=== PATIENT | female | born 1985 | race American Indian/Alaskan Native ===

== ENCOUNTER 2017-11-27 13:44 | Outpatient (CLI) | payer BC ==
--- NOTE | 2017-11-27 15:42 | Fluoroscopy Report ---
HYSTEROSALPINGOGRAM: History: Female infertility. Informed consent was obtained. Standard sterile prep and drape was employed. The catheter tip was subsequently placed within the uterine lumen via cervix. The small balloon on the tip of the catheter was inflated. Retrograde injection opacifies normal appearing uterine lumen. There is prompt filling of the fallopian tubes with prompt bilateral spillage. The uterine lumen demonstrates no evidence for extrinsic compression or intrinsic mass. IMPRESSION: Normal hysterosalpingogram.
== END 2017-11-27 13:45 | disposition home or self-care (01) ==
LOC: FLUORO 13:44
PROVIDERS: ATTEND Obstetrics & Gynecology
DX: N97.9 Female infertility, unspecified (principal)
CPT/HCPCS: 58340; 74740; Q9967

== ENCOUNTER 2019-01-04 11:19 | Inpatient (IN) | payer OTHER ==
[2019-01-04] MEDS: LACTATED RINGERS 1,000 ML IV SCH ×2 (12:45→14:58)
[2019-01-04 13:12] LABS: Bilirubin,Urine NEG (Negative); Blood,Urine LG (Negative); Color,Urine Amber (Yellow); Mucus,Urine FEW /HPF; Urobilinogen,Urine < 2.0 mg/dL (<2.0)
[2019-01-04] MEDS ORDERED: SUBLIMAZE IV PRN (13:38)
[2019-01-04 13:54] LABS: Hematocrit 35.9 % (30.3-42.9); Hemoglobin 12.3 gm/dl (10.1-14.3); Mean Corpuscular HGB Conc 34 % (30-34); Mean Corpuscular Volume 85 fl (79-97); Platelet Count 143 K/mm3 (140-440); Red Blood Count 4.24 M/mm3 (3.65-5.03); Red Cell Distribution Width 14.8 % (13.2-15.2)
[2019-01-04] MEDS ORDERED: PITOCin/NS 20 UNIT/1000ML DRIP 20 UNITS/1,000 ML BAG IV SCH (14:00)
[2019-01-04] MEDS ORDERED: PITOCin/NS 30 UNIT/500ML 30 UNITS/500 ML BAG IV SCH (14:00)
--- NOTE | 2019-01-04 16:34 | History and Physical Report ---
History of Present Illness Date of examination: 01/04/19 Date of admission: 01/04/19 14:51 Chief complaint: I'm in pain History of present illness: Patient is a 33 year old who presents in active labor at 39.3 weeks. Patient has been a patient of [facility] since 10 weeks. 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 Family/Genetic History: none Social history: - Obstetrical History Expected Date of Delivery: 01/15/19 Actual Gestation: 38 Week(s) 3 Day(s) : 2 Number of Living Children: 0 Medications and Allergies Allergies Allergy/AdvReac Type Severity Reaction Status Date / Time No Known Allergies Allergy Unverified 11/27/17 13:44 Home Medications Medication Instructions Recorded Confirmed Last Taken Type Pnv,Calcium 72/Iron,Carb/Folic 1 tab PO QDAY 01/04/19 01/04/19 01/03/19 12:00 History [ Plus Iron Tablet] valACYclovir [Valtrex] 1 tab PO BID 01/04/19 01/04/19 01/03/19 19:00 History Active Meds: Active Medications Fentanyl (Sublimaze) 100 mcg IV Q2H PRN PRN Reason: Labor Pain Lactated Ringer's (Lactated Ringers) 1,000 mls @ 125 mls/hr IV DIRECT ABRAHAN Last Admin: 01/04/19 14:58 Dose: 125 mls/hr Documented by: Oxytocin/Sodium Chloride (Pitocin/Ns 20 Unit/1000ml Drip) 20 units in 1,000 mls @ 0 mls/hr IV DIRECT ABRAHAN Oxytocin/Sodium Chloride (Pitocin/Ns 30 Unit/500ml) 30 units in 500 mls @ 2 mls/hr IV TITR ABRAHAN; Protocol Review of Systems All systems: negative Genitourinary: leakage of fluid, contractions - Vital Signs Vital signs: Vital Signs Temp Resp 98.5 F 18 01/04/19 11:29 01/04/19 11:29 Temp Pulse Resp BP Pulse Ox 98.5 F 109 H 18 142/85 99 01/04/19 11:29 01/04/19 16:28 01/04/19 11:29 01/04/19 16:28 01/04/19 13:58 - Physical Exam Breasts: Cardiovascular: Regular rate, Normal S1, Normal S2 Lungs: Positive: Clear to auscultation, Normal air movement Abdomen: Positive: normal appearance, soft, normal bowel sounds. Negative: distention, tenderness Vulva: both: normal Vagina: Positive: normal moisture. Negative: discharge Cervix: Negative: lesion, discharge Uterus: Positive: normal size, normal contour Adnexa: both: normal Anus/Rectum: Positive: normal perianal skin, heme negative. Negative: rectal mass, hemorrhoids Extremities: Deep Tendon Reflex Grade: Normal +2 - Obstetrical FHR: auscultation normal Uterine Contraction Monitor Mode: External Cervical Dilatation: 5 Cervical Effacement Percentage: 90 station: -2 Uterine Contraction Pattern: Regular Uterine Tone Measurement Phase: Contraction Uterine Contraction Intensity: Moderate Results Result Diagrams: 01/04/19 12:20 Abnormal lab results 01/04/19 01/04/19 Range/Units 12:20 12:45 WBC 11.2 H (4.5-11.0) K/mm3 Urine WBC (Auto) 8.0 H (0.0-6.0) /HPF All other labs normal. Assessment and Plan IUP at 39.3 weeks in active labor. Admit to L&D. Epidural if desired. AROM. Anticipate .
--- NOTE | 2019-01-04 16:39 | Procedure Note ---
OB Delivery Note - Delivery Date of Delivery: 01/04/19 Surgeon: ADRIANA HURST Estimated blood loss: 200cc - Vaginal Delivery presentation: vertex Delivery position: OA Intrapartum events: meconium Delivery induction: none Delivery augmentation: pitocin Delivery monitor: external FHT Route of delivery: Delivery placenta: spontaneous Delivery cord: 3 umbilical vessels Episiotomy: none Delivery laceration: none Anesthesia: none Delivery comments: Viable male delivered over intact perineum with 3vc. Mouth and nose suctioned on field. placed on maternal abdomen. Cord clamped and cut and infant handed to waiting NICU personnel who were called for meconium. Placenta delivered spontaneously and intact. Small labial laceration hemostatic and not repaired. - B at 1 minute: 8 at 5 minutes: 9 Infant Gender: Male (7 pounds 10 ounces)
[2019-01-04] MEDS ORDERED: PHENERGAN PR PRN (18:49)
[2019-01-04] MEDS ORDERED: MILK OF MAGNESIA PO PRN (18:49)
[2019-01-04] MEDS ORDERED: ZOFRAN IV PRN (18:49)
[2019-01-04] MEDS ORDERED: LANSINOH TP PRN (18:49)
[2019-01-04] MEDS ORDERED: TUCKS PAD TP PRN (18:49)
[2019-01-04] MEDS ORDERED: SODIUM CHLORIDE FLUSH SYRINGE 10 ML IV NR (18:49)
[2019-01-04] MEDS ORDERED: NORCO 5/325 PO PRN (18:49)
[2019-01-04] MEDS ORDERED: DULCOLAX PR PRN (18:49)
[2019-01-04] MEDS ORDERED: BENADRYL PO PRN (18:49)
[2019-01-04] MEDS ORDERED: TYLENOL PO PRN (18:49)
[2019-01-04] MEDS ORDERED: PHENERGAN PO PRN (18:49)
[2019-01-04] MEDS: IBUPROFEN PO SCH (22:23)
[2019-01-04] MEDS: COLACE PO SCH (22:23)
[2019-01-05 06:39] LABS: Hematocrit 30.7 % (30.3-42.9); Hemoglobin 10.5 gm/dl (10.1-14.3)
[2019-01-05] MEDS: IBUPROFEN PO SCH ×2 (10:16→12:45)
[2019-01-05] MEDS: COLACE PO SCH ×2 (10:16→21:54)
[2019-01-05] MEDS: PRENATAL VITAMIN PO SCH (10:16)
--- NOTE | 2019-01-05 15:35 | Progress Note ---
Subjective - Subjective Date of service: 01/05/19 Interval history: Patient is a 33 year old who presents in active labor at 39.3 weeks. Patient has been a patient of [facility] since 10 weeks. 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 Patient reports: appetite normal, voiding normally, pain well controlled, ambulating normally : doing well Objective - Vital Signs Latest vital signs: Vital Signs Temp Pulse Resp BP BP Pulse Ox 01/05/19 08:41 98.4 F 91 H 18 124/82 96 01/05/19 05:05 102 H 20 115/72 97 01/05/19 04:40 98.2 F 97 H 18 115/72 98 01/05/19 00:00 98.2 F 82 18 131/79 01/04/19 23:23 16 01/04/19 22:50 98.0 F 83 20 131/79 99 01/04/19 18:20 99.2 F 86 18 119/76 01/04/19 17:43 106 H 135/91 01/04/19 17:28 104 H 134/82 01/04/19 17:13 105 H 138/92 01/04/19 16:58 95 H 131/83 01/04/19 16:43 109 H 144/82 01/04/19 16:32 105 H 140/77 01/04/19 16:28 109 H 142/85 01/04/19 16:14 113 H 151/83 01/04/19 16:13 77 145/97 01/04/19 15:58 96 H 143/69 01/04/19 15:44 109 H 136/72 Intake and Output 01/05/19 01/05/19 01/05/19 06:59 14:59 22:59 Intake Total 240 240 Output Total 600 800 Balance -360 -560 Intake: Oral 240 240 Output: Urine 600 800 Void 600 800 Other: Total, Intake Amount 240 240 Total, Output Amount 600 800 # Voids Void 2 3 - Exam Breasts: Present: deferred Cardiovascular: Present: Regular rate, Normal S1, Normal S2 Lungs: Present: Clear to auscultation, Normal air movement Abdomen: Present: normal appearance, soft, normal bowel sounds Uterus: Present: normal, firm, fundal height below umbilicus Extremities: Present: normal
[2019-01-06] MEDS: IBUPROFEN PO SCH ×2 (00:22→09:52)
--- NOTE | 2019-01-06 09:25 | Progress Note ---
Assessment and Plan A/P PPD 2 doing well PP care routine d/c home Subjective - Subjective Date of service: 01/06/19 Principal diagnosis: s/p Patient reports: appetite normal, voiding normally, pain well controlled, flatus, ambulating normally [place]: doing well Objective - Vital Signs Latest vital signs: Vital Signs Temp Pulse Resp BP Pulse Ox 01/06/19 07:39 98.3 F 82 20 119/82 97 01/06/19 00:00 98.2 F 01/05/19 23:53 98 H 125/87 99 01/05/19 16:35 98.4 F 86 20 124/86 98 Intake and Output 01/05/19 01/06/19 01/06/19 23:59 07:59 15:59 Intake Total 1320 Balance 1320 Intake: Oral 600 Intake, Free Water 720 Other: Total, Intake Amount 600 - Exam Breasts: Present: normal Cardiovascular: Present: Regular rate, Normal S1 Lungs: Present: Clear to auscultation, Normal air movement Abdomen: Present: normal appearance, soft, normal bowel sounds. Absent: distention, tenderness, guarding Uterus: Present: normal, firm, fundal height below umbilicus. Absent: bogginess, tenderness Extremities: Present: normal Deep Tendon Reflex Grade: Normal +2
--- NOTE | 2019-01-06 09:26 | Discharge Summary ---
Providers - Providers Date of Admission: 01/04/19 14:51 Date of discharge: 01/06/19 Attending physician: ZEYNEP MOCK MD Primary care physician: ZEYNEP MOCK MD Hospitalization Reason for admission: active labor Delivery: Episiotomy: none Laceration: none Incision: normal Other procedures: none Discharge diagnosis: IUP at term delivered baby: male Hospital course: unremarkable hospital course Condition at discharge: Good Disposition: DC-01 TO HOME OR SELFCARE Plan - Discharge Medications Prescriptions: Ibuprofen [Motrin] 600 mg PO Q8H PRN #30 tablet PRN Reason: Pain oxyCODONE /ACETAMINOPHEN [Percocet 5/325] 1 tab PO Q6HR PRN #30 tablet PRN Reason: Pain - Provider Discharge Summary Activity: routine, no sex for 6 weeks, no strenuous exercise Diet: routine Instructions: routine Additional instructions: [] Smoking cessation referral if applicable(refer to patient education folder for contact #) [] Refer to [facility]'s [facility] Booklet Call your doctor immediately for: * Fever > 100.5 * Heavy vaginal bleeding ( >1 pad per hour) * Severe persistent headache * Shortness of breath * Reddened, hot, painful area to leg or breast * Drainage or odor from incision. * Keep incision clean and dry at all times and follow doctor's instructions regarding bathing/showering - Follow up plan Follow up: ZEYNEP MOCK MD [Primary Care Provider] - 02/03/19
[2019-01-06] MEDS: COLACE PO SCH (09:51)
[2019-01-06] MEDS: PRENATAL VITAMIN PO SCH (09:51)
[2019-01-06 13:28] VITALS: BP 142/89
== END 2019-01-06 13:05 | disposition home or self-care (01) | DRG 807 ==
LOC: TRG 11:19 → LD 14:51 → OB 18:36
PROVIDERS: ADMIT Obstetrics & Gynecology; ATTEND Obstetrics & Gynecology
PROC: 10E0XZZ Delivery of Products of Conception, External Approach (ICD-10-PCS; principal; 2019-01-04)
DX: O77.0 Labor and delivery complicated by meconium in amniotic fluid (principal); Z37.0 Single live birth; Z3A.39 39 weeks gestation of pregnancy; O70.0 First degree perineal laceration during delivery
CPT/HCPCS: 36415; 81001; 85014; 85018; 85027; 86592; 86850; 86900; 86901; G0378; J2590; J7120